=== PATIENT | female | born 1960 | race African-American/Black ===

== ENCOUNTER 2016-11-30 13:16 | Emergency (ER) | payer OTHER, MEDICARE ==
[~2016-11-30] VITALS: Ht 165.1 cm; Wt 116.6 kg
[~2016-11-30 13:16] MED LIST: BACLOFEN10 M1 PO; BUPROPION XL150 MG PO; CELEXA10 MG PO; IBUPROFEN800 M1 PO; LORAZEPAM1 M1 PO; NAPROSYN500 M1 PO; ORPHENADRINE C100 MG PO; PERCOCET 325 MG1 TA2 PO; PERCOCET 5-3251 EACH PO; RIVA15T PO; TRAMADOL50 MG PO; VICODIN 5-3001 EACH PO
--- NOTE | 2016-11-30 13:40 | ED MVC/FALL/TRAUMA COMPLAINT ---
History of Present Illness General Chief Complaint: Fall Stated Complaint: FALL Source: patient Exam Limitations: no limitations Vital Signs & Intake/Output Vital Signs & Intake/Output Vital Signs Date Time Temp Pulse Resp B/P Pulse O2 O2 Flow FiO2 Ox Delivery Rate 11/30 1522 64 18 156/89 97 Room Air 11/30 1321 97.8 70 20 146/62 99 Room Air Allergies Coded Allergies: NO KNOWN ALLERGIES (09/22/16) Reconcile Medications Baclofen (Unknown Strength) TABLET (Unknown Dose) PO DAILY MUSCLE SPASMS ( Reported) BUPROPION HCL (Bupropion XL) 150 MG T24 1 TAB PO QAM MENTAL HEALTH (Reported) Citalopram Hydrobromide (Celexa) 10 MG TAB 1 TAB PO DAILY MENTAL HEALTH ( Reported) Lorazepam 1 MG TAB 1 TAB PO DAILY ANXIETY (Reported) Oxycodone HCl/Acetaminophen (Percocet 5-325 MG Tablet) 5 MG-325 MG TABLET 1 TAB PO BID PRN PAIN Rivaroxaban (Xarelto) 15 MG TAB 1 TAB PO DAILY BLOOD THINNER Triage Note: PT BIBA FROM HOME STATES SHE SLIPPED AND FELL IN BATHROOM INJURING LEFT LOWER BACK, LEFT HIP AND NECK. PT WAS COLLARED BY EMS FACILITIES TECHNICIAN. PT STATES SHE TAKES ZARELTO FOR DVT. PT DENIES LOC Triage Nurses Notes Reviewed? yes Onset: Abrupt Duration: constant Timing: single episode today Severity: severe Severity Numbers: 10 Injuries/Fall Location: neck, lower extremity Method of Injury: direct blow, fall Loss of Consciousness: no loss of consciousness HPI: Patient is a 56-year-old female who presents emergency room stay and that this afternoon while standing in the shower in which patient states she slipped in the shower striking the left lateral hip pelvic region to the side of the tub and which she tried to get up and when she slipped again striking the left lateral neck region to the sinuses tub. Patient was able to ambulate out of the tub however a friend called assistance for EMS transfer to the emergency room. Denies any loss of consciousness. Denies any head strike. His cervical collar was placed onto patient by EMS. Denies any abdominal pain nausea vomiting. Patient can tolerate weightbearing activities since injury. Patient states that she gets lightheaded often however states that she most likely today is due to by eating or drinking. Denies any blurred vision but does have a headache. Denies any bowel or bladder incontinence or saddle paresthesia. It is noted through old records the patient has been evaluated in the past few months on 3 occasions for multiple falls Patient attributes this to having "bad ankles" and being evaluated multiple times for lightheaded sensation with unremarkable findings. (AL GARIBAY) Past History Travel History Traveled to [place] past 21 day No Medical History Any Pertinent Medical History? 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 No (AL GARIBAY) Review of Systems Review of Systems Constitutional: Reports: no symptoms. Eyes: Reports: no symptoms. Ears, Nose, Throat, Mouth: Reports: no symptoms. Respiratory: Reports: no symptoms. Cardiovascular: Reports: no symptoms. Gastrointestinal/Abdominal: Reports: no symptoms. Genitourinary: Reports: no symptoms. Musculoskeletal: Reports: see HPI, joint pain, muscle pain. Skin: Reports: no symptoms. Neurological/Psychological: Reports: no symptoms. All Other Systems: Reviewed and Negative (AL GARIBAY) Physical Exam Physical Exam General Appearance: mild distress Comments: HEENT: Normal EENT exam, extraocular motion intact, no nystagmus. Pupils equally round and reactive to light and accommodation. Nose is atraumatic. External auditory canal and Tympanic membranes clear. Pharynx normal. No swelling or edema. Neck: Cervical collar in place, central spinous tenderness noted Back: No central spinous tenderness, left lateral muscular point tenderness noted, decreased active range of motion noted Cardiovascular: Regular rate and rhythms no murmurs rubs or gallops, normal JVP Respiratory: Chest nontender. No respiratory distress.breath sounds clear to auscultation bilaterally Abdomen: Soft, nontender nondistended, no appreciable organomegaly. Normal bowel sounds. No ascites Extremity: No edema, no calf tenderness to palpation, normal and equal pulses. Bilateral upper extremity and lower extremity myotomes dermatomes DTRs intact Left hip-ISCHIAL CREST point tenderness noted Neuro: Alert oriented x3, motor sensory normal, cranial nerves II through XII grossly intact. Skin: No appreciable rash on exposed skin, skin is warm and dry. Psych: Mood and affect is normal, memory and judgment is normal. Core Measures ACS in differential dx? No Severe Sepsis Present: No Septic Shock Present: No (CHEIKH ROBLES,AL) Progress Differential Diagnosis: aoritic dissection, abd injury, C/T/L spine injury, ext injury, ICH, pelvis injury, pnemothorax, spinal cord injury Plan of Care: Orders Procedure Date/time Status FingerStick- Glucose 11/[address] scan was resulted for cervical spine the cervical spine collar was removed safely patient had mild decreased active range of motion noted Patient has no concerns of lumbar spine or pelvic injury patient had normal steady gait on discharge. Discussed CT scan results with patient showing no signs of ICH or fracture Patient upon discharge looks well no apparent distress (CHEIKH ROBLES,AL) Diagnostic Imaging: Viewed by Me: CT Scan. Radiology Impression: no acute abnormality Comments: PATIENT: JORGE MAX PRESENT AGE: 56 PATIENT ACCOUNT NO: [id number] : 62 LOCATION: [facility] ORDERING PHYSICIAN: AL ROBLES SERVICE DATE: 11/30/164383 EXAM TYPE: CAT - CT PELVIS WO IV CONTRAST EXAMINATION: CT PELVIS WITHOUT CONTRAST CLINICAL INFORMATION: Fall. Pelvic pain. COMPARISON: Right hip films dated 09/22/2016. TECHNIQUE: Helical scanning was performed with submillimeter collimation through the pelvis. Sagittal and coronal multiplanar 2-D reconstructions were obtained. DLP: 990.62 mGy-cm. FINDINGS: PELVIS: A few scattered colonic diverticula are seen with no evidence of acute diverticulitis. Included small and large bowel loops are otherwise unremarkable. Appendix is normal. There is a tiny fat-containing umbilical hernia. Lymphovascular structures are unremarkable. Bladder is normal. The patient is status post hysterectomy and presumably oophorectomy. No suspicious adnexal mass. OSSEOUS STRUCTURES: The bony pelvis is intact. No sacral insufficiency fracture or pelvic ring fracture is seen. There is moderate degenerative disc disease at the lumbosacral junction and mild vertebral spondylosis at L4 and L5. Mild degenerative changes are seen in both sacroiliac joints and in the hip joints. IMPRESSION: 1. No evidence of pelvic or hip fracture. 2. Moderate degenerative disc disease at the lumbosacral junction and mild vertebral spondylosis in lower lumbar spine. 3. Mild degenerative changes in the sacroiliac joints and hip joints. DICTATED BY: DAVID HERNANDEZ MD DATE/TIME DICTATED:11/30/161458 AGRONOMY MANAGER:MIKEL DATE/TIME TRANSCRIBED:11/30/161458 (AL GARIBAY) Departure Departure Disposition: HOME OR SELF CARE Condition: Stable Clinical Impression Primary Impression: Fall Secondary Impressions: Low back strain, Neck strain Referrals: CATHY CHARLES MD (PCP/Family) Additional Instructions: As discussed begin icing the area directly 20 minutes every 2 hours. Begin over -the-counter ibuprofen for pain and inflammation and begin the prescription of Percocet for breakthrough pain relief. Follow-up with primary care doctor next week for recheck of symptoms. If symptoms worsen return to emergency room Departure Forms: Customer Survey General Discharge Information Prescriptions: Current Visit Scripts Oxycodone HCl/Acetaminophen (Percocet 5-325 MG Tablet) 1 TAB PO BID PRN PAIN #8 TAB (AL GARIBAY) PA/PUNCH PRESS SETTER Co-Sign Statement Statement: ED Attending supervision documentation- [] I saw and evaluated the patient. I have also reviewed all the pertinent lab results and diagnostic results. I agree with the findings and the plan of care as documented in the PA's/PUNCH PRESS SETTER's documentation. X I have reviewed the ED Record and agree with the PA's/PUNCH PRESS SETTER's documentation. [] Additions or exceptions (if any) to the PAs/PUNCH PRESS SETTER's note and plan are summarized below: [] (ANTHONY SWAIN,JUANITA)
--- NOTE | 2016-11-30 15:12 | CT SCAN REPORT ---
EXAMINATION: CT PELVIS WITHOUT CONTRAST CLINICAL INFORMATION: Fall. Pelvic pain. COMPARISON: Right hip films dated 09/22/2016. TECHNIQUE: Helical scanning was performed with submillimeter collimation through the pelvis. Sagittal and coronal multiplanar 2-D reconstructions were obtained. DLP: 990.62 mGy-cm. FINDINGS: PELVIS: A few scattered colonic diverticula are seen with no evidence of acute diverticulitis. Included small and large bowel loops are otherwise unremarkable. Appendix is normal. There is a tiny fat-containing umbilical hernia. Lymphovascular structures are unremarkable. Bladder is normal. The patient is status post hysterectomy and presumably oophorectomy. No suspicious adnexal mass. OSSEOUS STRUCTURES: The bony pelvis is intact. No sacral insufficiency fracture or pelvic ring fracture is seen. There is moderate degenerative disc disease at the lumbosacral junction and mild vertebral spondylosis at L4 and L5. Mild degenerative changes are seen in both sacroiliac joints and in the hip joints. IMPRESSION: 1. No evidence of pelvic or hip fracture. 2. Moderate degenerative disc disease at the lumbosacral junction and mild vertebral spondylosis in lower lumbar spine. 3. Mild degenerative changes in the sacroiliac joints and hip joints.
[2016-11-30 15:22] VITALS: BP 156/89
--- NOTE | 2016-11-30 15:35 | CT SCAN REPORT ---
EXAMINATION: CT NECK WITHOUT CONTRAST CT LUMBAR SPINE WITHOUT CONTRAST CLINICAL INFORMATION: Fall. Lumbosacral and cervical spine pain. COMPARISON: CT scan of the cervical spine dated 10/28/2016. Lumbosacral spine films dated 07/07/2016. TECHNIQUE: Contiguous axial thin section imaging of the cervical spine and the lumbar spine were performed without the administration of intravenous contrast. Sagittal and coronal reformations were obtained. DLP: CT scan of the neck: 284.69 mGy-cm. CT scan of the lumbar spine: 1085.17 mGy-cm. FINDINGS: CT SCAN OF THE NECK: No acute fracture or dislocation or prevertebral soft tissue swelling is seen. Craniocervical junction and atlantoaxial articulation are intact. Slight straightening of the cervical spine is seen, likely related to patient positioning. Mild degenerative changes are seen at the atlantoaxial articulation. There is moderate degenerative disc disease at C5-C6 and C6-C7 with disc space narrowing and vertebral endplate spurring. As seen previously, there is ossification of the posterior longitudinal ligament at the C4 and C5 and to a lesser extent at the C6 and C7 levels, causing mild central canal stenosis. Mild facet arthropathy is seen in the lower cervical spine. Included soft tissues are unremarkable. CT SCAN OF THE LUMBAR SPINE: Normal alignment of the lumbar spine is seen. There is mild superior compression deformity of the anterior aspect of the L4 vertebral body with approximately 30% reduction in vertebral body height. Similar findings were seen on previous plain films from 07/07/2016. No new or acute lumbar spine fracture is seen. There is no prevertebral/paravertebral soft tissue swelling. There is moderate degenerative disc disease at the lumbosacral junction with disc space narrowing, vacuum disc phenomenon, vertebral endplate sclerosis and spurring. Remainder of the disc space height is relatively well-maintained. Mild vertebral spondylosis is seen throughout the lumbar spine. Moderate facet arthropathy is seen in the mid and lower lumbar spine. Included soft tissues are unremarkable. IMPRESSION: 1. No acute fracture of the cervical spine. 2. No acute fracture of the lumbar spine. 3. Chronic mild superior endplate compression deformity of the L4 vertebral body. 4. Multilevel degenerative changes in the cervical spine and lumbar spine.
[2016-11-30] MEDS ORDERED: PERCOCET 5-3251 EACH PO (15:47)
== END 2016-11-30 16:13 ==
LOC: ERH 13:16
DX: S39.012A Strain of muscle, fascia and tendon of lower back, initial encounter (principal); S16.1XXA Strain of muscle, fascia and tendon at neck level, initial encounter; W01.0XXA Fall on same level from slipping, tripping and stumbling without subsequent striking against object, initial encounter; Y92.002 Bathroom of unspecified non-institutional (private) residence as the place of occurrence of the external cause

== ENCOUNTER 2017-02-09 12:51 | Emergency (ER) | payer OTHER, MEDICARE ==
--- NOTE | 2017-02-09 15:17 | ED NECK/BACK PAIN COMPLAINT ---
History of Present Illness General Chief Complaint: Low Back Pain/Injury Stated Complaint: BIBA BACK PAIN Source: patient, family, old records Exam Limitations: no limitations Vital Signs & Intake/Output Vital Signs & Intake/Output Vital Signs Date Time Temp Pulse Resp B/P Pulse O2 O2 Flow FiO2 Ox Delivery Rate 02/09 1759 97.2 76 18 148/90 98 Room Air Room Air 02/09 1500 97.5 80 18 142/94 97 Room Air Room Air 02/09 1257 96.7 75 20 144/95 98 Room Air Allergies Uncoded Allergies: BREAD (VOMITING 02/09/17) Reconcile Medications Baclofen (Unknown Strength) TABLET (Unknown Dose) PO DAILY MUSCLE SPASMS ( Reported) Bupropion HCl (Bupropion XL) (Unknown Strength) TAB.ER.24H (Unknown Dose) PO QAM MENTAL HEALTH (Reported) Clonidine HCl 0.1 MG TABLET 1 TAB PO BID ANXIETY (Reported) Diazepam (Valium) 5 MG TABLET 1 TAB PO BIDP PRN PAIN Lorazepam 1 MG TABLET 1 TAB PO BID ANXIETY (Reported) Oxycodone HCl/Acetaminophen (Oxycodone-Acetaminophen 5-325) 5 MG-325 MG TABLET 1 TAB PO Q4-6H PRN PAIN (Reported) Rivaroxaban (Xarelto) 20 MG TABLET 1 TAB PO DAILY BLOOD THINNER (Reported) with food Tramadol HCl 50 MG TABLET 1 TAB PO Q6P PRN PAIN (Reported) Triage Note: PT BIBA FOR CHRONIC LOW BACK PAIN Triage Nurses Notes Reviewed? yes Onset: Abrupt Duration: day(s): (3-4), constant Timing: recent history Quality/Severity: moderate, severe (aching) Location: T-spine, paraspinous muscles Context: denies injury Method of Injury: unknown Loss of Consciousness: no loss of consciousness Modifying Factors: movement, rest Associated Symptoms: denies HPI: 56-year-old female history of DVT, on xarelto, chronic back pain for which she is on Percocet tramadol presents to the ER complaining of a 3 to four-day history of right sided lower and left upper back pain that is worse with palpation change in position better rest and only mildly improved with her pain medications. She states the symptoms came on after cleaning the house she bent over and had the symptoms. She reports however that the pain is worse with deep inspiration. No cough hemoptysis fever chills chest pain. She denies any leg swelling urinary or bowel incontinence dysuria urgency frequency no abdominal pain nausea or vomiting. She is not sought care for the symptoms until today (AL MURPHY) Past History Travel History Traveled to [place] past 21 day No Medical History Any Pertinent Medical History? 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 No (AL MURPHY) Review of Systems Review of Systems Constitutional: Reports: see HPI. All Other Systems: Reviewed and Negative Comments Review of systems: See HPI, All other systems negative. Constitutional, no chills no fever, no malaise HEENT: No visual changes no sore throat no congestion Cardiovascular: No chest pain , no palpitation Skin, no rashes, no change in skin Respiratory: No dyspnea no cough no sputum GI: No nausea no vomiting, no diarrhea, gu: no dysuria Muscle skeletal: No joint pain, no joint swelling, back pain, no neck pain, Neurologic: No numbness no headache Psych: No stress Heme/endocrine: No bruising no bleeding Immunology: No lymphadenopathy (AL MURPHY) Physical Exam Physical Exam General Appearance: well developed/nourished, awake, mild distress Neck: normal inspection, supple, full range of motion Comments: Well-developed well-nourished person in no acute distress HEENT: Normal EENT exam; PERRL, EOMI HEAD is atraumatic. moist mucous membranes. Neck: Supple, normal range of motion Back: There is bilateral parathoracic and paralumbar muscle tenderness to palpation no ecchymosis or signs of trauma, no CVA tenderness. Full range of motion Cardiovascular: Regular rate and rhythms no murmurs rubs Respiratory: Chest nontender.There were no bony deformities, no asymmetry. No respiratory distress. Patient speaking in full complete sentences. Breath sounds clear to auscultation bilaterally: NO W/R/R Abdomen: Soft, obese nontender nondistended, no appreciable organomegaly. Normal bowel sounds. No rebound/guarding, No appreciable enlargement of the abdominal aorta, No ascites. Extremity: No edema, full range of motion of extremities, normal and equal pulses bilaterally, 5 out of 5 strength noted to bilateral upper and lower extremities Neuro: Alert oriented x3, motor sensory normal, There were no obvious focal neurologic abnormalities. Skin: No appreciable rash on exposed skin, skin is warm and dry. Psych: Mood and affect is normal, memory and judgment is normal. (DENAE ROBLES,AL) Progress Differential Diagnosis: cauda equina syn, herniated disc, myofascial strain, pyelo/UTI, spinal cord inj, T/L spine injury, pe Plan of Care: Orders Procedure Date/time Status TROPONIN LEVEL 02/09 150 Complete PARTIAL THROMBOPLASTIN TIME 02/09 150 Complete PROTHROMBIN TIME 02/09 150 Complete COMPREHENSIVE METABOLIC PANEL 02/09 150 Complete CBC WITHOUT DIFFERENTIAL 02/09 150 Complete EKG 02/09 150 Active Laboratory Tests 02/09/17 1519: Anion Gap 6, Estimated GFR > 60, BUN/Creatinine Ratio 21.3, Glucose 95, Calcium 10.0, Total Bilirubin 0.4, AST 17, ALT 28, Alkaline Phosphatase 90, Troponin I < 0.01, Total Protein 7.1, Albumin 4.1, Globulin 3.0, Albumin/Globulin Ratio 1.4, PT 20.9 H, INR 2.00 H, APTT 47 H, CBC w Diff NO MAN DIFF REQ, RBC 4.26, MCV 94.1, MCH 30.3, RDW 15.5 H, MPV 8.8, Gran % 68.3, Lymphocytes % 20.2 L, Monocytes % 9.0, Eosinophils % 1.9, Basophils % 0.6, Absolute Granulocytes 6.6 H, Absolute Lymphocytes 2.0, Absolute Monocytes 0.9 H, Absolute Eosinophils 0.2 , Absolute Basophils 0.1, PUBS MCHC 32.2 L Labs ordered old or reviewed patient acute Dilaudid 1 mg IV CAT scan and labs ordered Repeat evaluation patient reports improvement in her pain 02/09/2017 5:01:44 PM patient reports pain is now 5 out of 10 only present with change in position I discussed the patient at length her CAT scan and lab results, symptoms are most likely muscle skeletal in etiology given the reproducible symptoms with movement and palpation, I answered all their questions I discussed with the patient at length all of their results. I had an extensive conversation regarding need for close follow up with their primary care physician this week as well as return precautions. I answered all of their questions, they feel comfortable with the plan and follow-up care. I discussed the medications that they will receive with the patient. I gave them signs and symptoms that could indicate an adverse reaction. I have advised them to limit their activities until they can see how they respond to the medication. (DENAE ROBLES,AL) Diagnostic Imaging: Viewed by Me: CT Scan. Discussed w/RAD: CT Scan. Radiology Impression: PATIENT: JORGE MAX PRESENT AGE: 56 PATIENT ACCOUNT NO: [id number] : 62 LOCATION: [facility], [place] ORDERING PHYSICIAN: AL ROBLES SERVICE DATE: 02/09/17 EXAM TYPE: CAT - CTA CHEST-PULMONARY EMBOLISM EXAMINATION: CT ANGIOGRAM CHEST WITH AND WITHOUT CONTRAST (CT PULMONARY ANGIOGRAM FOR PE) CLINICAL INFORMATION: Left upper back pain with inspiration. History of deep vein thrombosis. Evaluate for pulmonary embolism. COMPARISON: Chest x-ray 10/28/2016. TECHNIQUE: Prior to contrast administration, noncontrast localization images were obtained. Subsequently, multidetector volumetric imaging was performed from the thoracic inlet to below the diaphragms following the administration of 95 mL Optiray 320 intravenous contrast. No contrast reaction reported. Sagittal, coronal, and MIP oblique sagittal reformatted images were obtained on the CT workstation, uploaded to PACS, and reviewed. Total exam dose-length product: 546.34 mGy-cm. FINDINGS: QUALITY OF STUDY/CONTRAST BOLUS: Satisfactory. PULMONARY ARTERIES: No central or segmental pulmonary emboli. THORACIC AORTA: No aneurysm or dissection. LUNG: There is a 4 mm pleural-based nodule in the right lower lobe (series 2, image 276. PLEURA: No pleural effusion or pneumothorax. MEDIASTINUM: Normal heart size. No pericardial effusion. No hilar or mediastinal lymphadenopathy. No evidence of septal bowing or right heart strain. CHEST WALL/AXILLA: No axillary or internal mammary lymphadenopathy. OSSEOUS STRUCTURES: There is moderate multilevel thoracic spondylosis. UPPER ABDOMEN: Unremarkable. No reflux of contrast into the hepatic veins to suggest elevated right heart pressures. IMPRESSION: 1. No evidence of pulmonary emboli. 2. Pleural-based 4 mm nodule in the right lower lobe. Various management parameters for solitary pulmonary nodules are in the literature. According to the [employer], recommendations for pulmonary nodules are as follows: Nodule size < or = to 4 mm in LOW RISK PATIENTS: No followup needed. Nodule size < or = to 4 mm in HIGH RISK PATIENTS: Followup CT at 12 months; if unchanged, no further followup. VTE: Negative. DICTATED BY: DAVID BARROSO MD DATE/TIME DICTATED:02/09/171635 ANIMAL HUSBANDRY TEACHER:MIKEL DATE/TIME TRANSCRIBED:02/09/171635 CONFIDENTIAL, DO NOT COPY WITHOUT APPROPRIATE AUTHORIZATION. <Electronically signed in Other Vendor System> SIGNED BY: DAVID BARROSO MD 02/09/17 9159 (AL MURPHY) Departure Departure Time of Disposition: 1716 Disposition: HOME OR SELF CARE Condition: Stable Clinical Impression Primary Impression: Back strain Referrals: DEMETRI OMALLEY MD (PCP/Family) Additional Instructions: FOLLOW UP WITH YOUR PMD DR OMALLEY WELL YOUR PAIN MANAGEMENT DR MAC THIS WEEK. CONTINUE TAKING YOUR MEDICATIONS PRESCRIBED. VALIUM DIRECTED- THIS WAS SENT TO [facility]. RETURN WITH AY CONCERNS. HHEATING PADS DISCUSSED Departure Forms: Customer Survey General Discharge Information Prescriptions: Current Visit Scripts Diazepam (Valium) 1 TAB PO BIDP PRN PAIN #10 TAB (AL MURPHY) PA/PERFORMING ARTIST Co-Sign Statement Statement: ED Attending supervision documentation- [] I saw and evaluated the patient. I have also reviewed all the pertinent lab results and diagnostic results. I agree with the findings and the plan of care as documented in the PA's/PERFORMING ARTIST's documentation. [X] I have reviewed the ED Record and agree with the PA's/PERFORMING ARTIST's documentation. [] Additions or exceptions (if any) to the PAs/PERFORMING ARTIST's note and plan are summarized below: [] (DAVID FISH DO
[2017-02-09] MEDS ORDERED: OXYCODONE-ACET1 EACH PO (15:26)
[2017-02-09] MEDS ORDERED: TRAMADOL HCL50 M1 PO (15:26)
[2017-02-09] MEDS ORDERED: XARELTO20 M2 PO (15:27)
[2017-02-09] MEDS ORDERED: CLONIDINE HCL0.1 MG PO (15:28)
[2017-02-09 15:32] LABS: ABSOLUTE BASOPHIL COUNT 0.1 /CUMM (0.0-0.2); ABSOLUTE EOSINOPHIL COUNT 0.2 /CUMM (0.0-0.7); ABSOLUTE GRANULOCYTE CT 6.6 /CUMM (1.4-6.5); ABSOLUTE MONOCYTE COUNT 0.9 /CUMM (0.10-0.60); BASOPHIL % 0.6 % (0.0-2.0); EOSINOPHIL % 1.9 % (0-5); GRANULOCYTE % 68.3 % (42.2-75.2); MEAN CORPUSCULAR HGB 30.3 PG (27.0-31.0); MEAN CORPUSCULAR HGB CONC 32.2 G/DL (33.0-37.0); MEAN CORPUSCULAR VOLUME 94.1 FL (81.0-99.0); MEAN PLATELET VOLUME 8.8 FL (7.4-10.4); PLATELET COUNT 337 /CUMM (130-400); RBC DISTRIBUTION WIDTH 15.5 % (11.5-14.5); RED BLOOD CELL CT 4.26 /CUMM (4.20-5.40); WHITE BLOOD CELL COUNT 9.7 /CUMM (4.8-10.8)
[2017-02-09 16:31] LABS: PT 20.9 SEC (9.4-12.5); PTT 47 SEC (25-37)
--- NOTE | 2017-02-09 16:55 | CT SCAN REPORT ---
EXAMINATION: CT ANGIOGRAM CHEST WITH AND WITHOUT CONTRAST (CT PULMONARY ANGIOGRAM FOR PE) CLINICAL INFORMATION: Left upper back pain with inspiration. History of deep vein thrombosis. Evaluate for pulmonary embolism. COMPARISON: Chest x-ray 10/28/2016. TECHNIQUE: Prior to contrast administration, noncontrast localization images were obtained. Subsequently, multidetector volumetric imaging was performed from the thoracic inlet to below the diaphragms following the administration of 95 mL Optiray 320 intravenous contrast. No contrast reaction reported. Sagittal, coronal, and MIP oblique sagittal reformatted images were obtained on the CT workstation, uploaded to PACS, and reviewed. Total exam dose-length product: 546.34 mGy-cm. FINDINGS: QUALITY OF STUDY/CONTRAST BOLUS: Satisfactory. PULMONARY ARTERIES: No central or segmental pulmonary emboli. THORACIC AORTA: No aneurysm or dissection. LUNG: There is a 4 mm pleural-based nodule in the right lower lobe (series 2, image 276. PLEURA: No pleural effusion or pneumothorax. MEDIASTINUM: Normal heart size. No pericardial effusion. No hilar or mediastinal lymphadenopathy. No evidence of septal bowing or right heart strain. CHEST WALL/AXILLA: No axillary or internal mammary lymphadenopathy. OSSEOUS STRUCTURES: There is moderate multilevel thoracic spondylosis. UPPER ABDOMEN: Unremarkable. No reflux of contrast into the hepatic veins to suggest elevated right heart pressures. IMPRESSION: 1. No evidence of pulmonary emboli. 2. Pleural-based 4 mm nodule in the right lower lobe. Various management parameters for solitary pulmonary nodules are in the literature. According to the [employer], recommendations for pulmonary nodules are as follows: Nodule size < or = to 4 mm in LOW RISK PATIENTS: No followup needed. Nodule size < or = to 4 mm in HIGH RISK PATIENTS: Followup CT at 12 months; if unchanged, no further followup. VTE: Negative.
[2017-02-09] MEDS ORDERED: VALIUM5 M2 PO (17:18)
[2017-02-09 17:59] VITALS: BP 148/90
== END 2017-02-09 18:01 ==
LOC: ERH 12:51
PROVIDERS: Physician Assistant Medical
DX: S29.012A Strain of muscle and tendon of back wall of thorax, initial encounter (principal); S39.012A Strain of muscle, fascia and tendon of lower back, initial encounter; X50.9XXA Other and unspecified overexertion or strenuous movements or postures, initial encounter; Y93.E9 Activity, other interior property and clothing maintenance; Y92.009 Unspecified place in unspecified non-institutional (private) residence as the place of occurrence of the external cause; Z79.01 Long term (current) use of anticoagulants
CPT/HCPCS: 93005; 93010; 96374; 96376